=== PATIENT | male | born 1995 | race Caucasian/White ===

== ENCOUNTER 2019-09-19 22:22 | Emergency (ER) | payer SELFPAY ==
[~2019-09-19] VITALS: Ht 177.8 cm; Wt 54.5 kg
[2019-09-20 02:00] VITALS: PULSE 0
== END 2019-09-20 02:00 | disposition expired ==
LOC: COL.ER 22:29 → EDBD 22:30 → COL.ER 09-20 02:00
DX: S21.402A Unspecified open wound of left back wall of thorax with penetration into thoracic cavity, initial encounter (principal); I46.9 Cardiac arrest, cause unspecified; X95.9XXA Assault by unspecified firearm discharge, initial encounter; Y92.481 Parking lot as the place of occurrence of the external cause
CPT/HCPCS: J0171